=== PATIENT | male | born 1980 | race Caucasian/White ===

== ENCOUNTER 2018-10-07 03:18 | Observation (INO) ==
[2018-10-07] MEDS ORDERED: Azithromycin 250 MG TABLET PO ONE (06:01)
--- NOTE | 2018-10-07 06:04 | Emergency Department Note ---
Disposition Clinical Impression: Cough, Chest wall pain Disposition: Home, Self-Care Condition: Good Prescriptions: Azithromycin [Azithromycin 6-Tab Pack] 250 mg PO PER PKG DI #6 tab Referrals: Karsten Morrison MD [Primary Care Provider] - Forms: ED Satisfaction Letter Time of Disposition: 06:03 General Adult HPI - General Chief complaint: ED Upper Respiratory Infection Stated complaint: COUGH RIB PAINS Time Seen by Provider: 10/07/18 04:26 Source: patient, family Limitations: no limitations Nursing Notes Reviewed: Yes Vital Signs Reviewed: Yes - History of Present Illness HPI Narrative: 37-year-old male smoker presents with complaint of 40 history of cough, accompanied with right-sided rib pain. He describes rib pain starting a few hours prior to his arrival. He mentions he was preparing for a bicycle ride, when the pain had started. He mentions it is worse when he breathes in, and mild shortness of breath. Nursing does report that he had complained of sputum production as well. He denies any fever, night sweats, back pain, hemoptysis, extremity pain. Pain Scale: 4 - Related Data Previous Rx's Medication Instructions Recorded predniSONE [Prednisone] 60 mg PO DAILY #20 tablet 01/26/16 valACYclovir [Valtrex] 500 mg PO BID #10 tablet 01/26/16 Doxycycline 100 mg PO BID #14 capsule 09/04/16 Ibuprofen [Motrin] 600 mg PO Q8HR PRN #20 tab 09/04/16 Sulfamethoxazole/Trimeth DS 2 each PO BID #28 tablet 09/04/16 [Bactrim DS] traMADol [Ultram] 50 - 100 mg PO Q8HR PRN #20 tablet 09/04/16 Amoxicillin 875 mg PO BID #20 tablet 05/10/17 Azithromycin [Azithromycin 6-Tab 250 mg PO PER PKG DI #6 tab 10/07/18 Pack] Allergies Allergy/AdvReac Type Severity Reaction Status Date / Time No Known Allergies Allergy Verified 01/26/16 13:57 All systems ED: reviewed and negative except as stated. Review of Systems: As Per HPI Constitutional: Reports: as per HPI Eyes: Denies: vision change ENT ED: Denies: throat pain Cardiovascular: Reports: as per HPI Respiratory: Reports: as per HPI Gastrointestinal: Denies: abdominal pain, nausea, vomiting Genitourinary: Denies: dysuria Musculoskeletal: Denies: back pain Integumentary: Denies: rash Neurological: Denies: headache, weakness, numbness Psychiatric: Denies: depression Endocrine: Denies: fatigue Hematological/Lymphatic: Denies: easy bleeding Allergic/Immunologic: Denies: facial swelling Past Medical History - Past Medical History Medical history: Reports: no medical history Psychiatric history: Reports: no psych history - Social History Smoking Status: Current every day smoker Smokeless Tobacco Status: No Alcohol use: Reports: occasionally Drug use: Reports: marijuana, other Physical Exam - General Limitations: no limitations General appearance: alert, in no apparent distress - Head Head exam: atraumatic, normocephalic - Eye Eye exam: Present: EOMI. Absent: conjunctival injection - ENT ENT exam: normal oropharynx, mucous membranes moist - Neck Neck exam: Present: normal inspection, full ROM - Chest Chest inspection: Present: normal inspection. Absent: symmetric chest wall rise, tenderness - Respiratory Respiratory exam: Present: normal lung sounds bilaterally. Absent: respiratory distress (Decreased), wheezes, stridor, accessory muscle use - Cardiovascular Cardiovascular exam: Present: normal rhythm, tachycardia - Abdominal Exam Abdominal exam: Present: soft, Non-Tender - Extremities Exam Extremities exam: Present: normal inspection, full ROM, normal capillary refill - Back Exam Back exam: Present: full ROM - Neurological Exam Neurological exam: Present: alert - Psychiatric Psychiatric exam: Present: normal affect, normal mood - Skin Skin exam: Present: warm, dry, intact, normal color, diaphoresis. Absent: rash, cyanosis Course Course Narrative: 37-year-old male smoker presented with complaint of cough, and right-sided chest wall pain that he described as rib pain. One view chest x-ray was ordered at triage while patient was in the waiting room. I saw patient shortly after his arrival to exam room. He was initially tachycardic, O2 sats 95. Repeat examination, he did have mild improvement of his heart rate, O2 sats remained 93%. He does have a history of smoking denies any history of COPD. On my exam he was Initially diaphoretic. He also appeared somnolent, but arousable and answered questions appropriately. One view x-ray viewed by myself interpreted by radiologist shows right lower opacities, with radiologist impression is lower lung pinto and right-sided atelectasis. Upon discussion with patient, he states that he has had a four-day history of cough, but his pain had acutely worsened tonight, and is very painful when he breathes in. On my examination his lung sounds are slightly decreased, she will feel is related to his pleurisy with inhalation. - Reevaluation(s) Reevaluation #1: Pt tachycardia and acute onset of chest pain concerning for pneumonia and possibly PE. At this time it's the end of my shift, care of the patient will be continue by dayshift provider Jackeline Walls PA-C. I did discuss patient with Jackeline who also had face time with patient. She will continue her evaluation further workup. At this point, I feel that patient's symptoms are most consistent with pneumonia, and if further workup is consistent with this and no worsening or concerning signs for PE or any other acute conditions, patient will likely be able to be discharged to home with po antibiotics. However please see Jackeline's documentations for details and any changes this plan. Time: 06:25 Vital Signs Temperature 99 F 10/07/18 03:40 Pulse Rate 119 10/07/18 03:40 Respiratory Rate 20 10/07/18 03:40 Blood Pressure 109/42 10/07/18 03:40 O2 Sat by Pulse Oximetry 95 10/07/18 03:40 Temperature 99 F 10/07/18 03:40 Pulse Rate 89 10/07/18 05:48 Respiratory Rate 16 10/07/18 05:48 Blood Pressure 116/78 10/07/18 05:48 O2 Sat by Pulse Oximetry 93 10/07/18 05:48 Oxygen Delivery Oxygen Delivery Room Air Medical Decision Making - [facility] Narrative Medical decision making narrative: Chest X-Ray 10/07/18 03:59 IMPRESSION: 1. Low lung volumes with right basilar atelectasis. D/ / Jones Caldwell MD / Jones Caldwell MD Interpreting Provider: Jones Caldwell MD - Radiology Data Radiology results reviewed: Yes I reviewed the patient's radiology results.
[2018-10-07] MEDS ORDERED: Ipratropium/Albuterol Neb 3 ML IH ONE (06:12)
[2018-10-07] MEDS ORDERED: 0.9 % Sodium Chloride 1,000 ML IVC ONE ×2 (06:25→10:34)
--- NOTE | 2018-10-07 06:57 | Emergency Department Note ---
Disposition Clinical Impression: Multifocal lung consolidation, History of intravenous drug abuse, Severe sepsis, Hypochloremia, Hyponatremia Disposition: Admitted As Inpatient Condition: Serious General Adult HPI - General Chief complaint: ED Upper Respiratory Infection Stated complaint: COUGH RIB PAINS Time Seen by Provider: 10/07/18 04:26 Source: patient, family Mode of arrival: private vehicle Limitations: no limitations Nursing Notes Reviewed: Yes Vital Signs Reviewed: Yes - History of Present Illness HPI Narrative: Patient with history of IV drug abuse / polysubstance abuse - last use was heroin two days ago - presents from home with friend for evaluation of right- sided rib pain. His friend provides much of the history. He states that they were about to go for a bike ride at 9 PM and the patient suddenly dropped his right side and said he had severe pain. He states that the patient looked very pale and was sweaty. Patient describes it as a sharp stabbing pain without radiation. It is worse with deep inspiration, coughing, laughing and sometimes worse with certain movements. He has had a cough for about three or four days that is intermittent and occasionally productive of yellow phlegm. He denies hemoptysis, nausea, vomiting, fever, chills, dizziness, vertigo, syncope. He complains of feeling "rundown." Pt Subjective Complaint: cough x 3-4 days, right side chest pain since 9pm last night Onset (ago): [employer] Location: chest, right Radiation: non-radiation Pain Severity: moderate Pain Scale: 4 Quality: stabbing, sharp Consistency: intermittent Improves with: rest Worsens with: other (deep breath, cough, laugh) Associated symptoms: Reports: cough, malaise ("run down"). Denies: confusion, diaphoresis, fever/chills, headaches, loss of appetite, nausea/vomiting, rash, seizure, shortness of breath, syncope, weakness Treatments Prior to Arrival: none - Related Data Home Medications Medication Instructions Recorded Confirmed No Known Home Drugs 10/07/18 10/07/18 Allergies Allergy/AdvReac Type Severity Reaction Status Date / Time No Known Allergies Allergy Verified 10/07/18 10:42 All systems ED: reviewed and negative except as stated. Review of Systems: As Per HPI Constitutional: Reports: as per HPI Eyes: Denies: vision change ENT ED: Denies: throat pain Cardiovascular: Reports: as per HPI Respiratory: Reports: as per HPI Gastrointestinal: Denies: abdominal pain, nausea, vomiting Genitourinary: Denies: dysuria Musculoskeletal: Denies: back pain Integumentary: Denies: rash Neurological: Denies: headache, weakness, numbness Psychiatric: Denies: depression Endocrine: Denies: fatigue Hematological/Lymphatic: Denies: easy bleeding Allergic/Immunologic: Denies: facial swelling Past Medical History - Past Medical History Attestation: Yes The following information was validated with the patient. Source: patient, obtained from family Medical history: Reports: no medical history Surgical history: Reports: non-contributory Psychiatric history: Reports: no psych history - Social History Smoking Status: Current every day smoker Smokeless Tobacco Status: No Alcohol use: Reports: occasionally Drug use: Reports: marijuana, IV Drug Use, other Physical Exam - General Limitations: no limitations General appearance: in no apparent distress, lethargic - Head Head exam: atraumatic, normocephalic, normal inspection - Eye Eye exam: Present: normal appearance, PERRL. Absent: scleral icterus, conjunctival injection, periorbital swelling - ENT ENT exam: normal oropharynx, mucous membranes moist - Neck Neck exam: Present: normal inspection, full ROM, trachea midline. Absent: tenderness, meningismus, lymphadenopathy - Chest Chest inspection: Present: symmetric chest wall rise, other (Left clavicle deformity, chronic). Absent: tenderness, rash - Respiratory Respiratory exam: Absent: normal lung sounds bilaterally, respiratory distress, wheezes, stridor, accessory muscle use, prolonged expiratory phase - Expanded Respiratory Exam Location: rales: Left, Right, Lower - Cardiovascular Cardiovascular exam: Present: regular rate, normal rhythm, systolic murmur - Abdominal Exam Abdominal exam: Present: soft, Non-Tender. Absent: distention, guarding, rebound, rigidity, organomegaly, ascites, mass, pulsatile mass - Extremities Exam Extremities exam: Present: full ROM, normal capillary refill, other (Track ellison bilateral upper extremities). Absent: normal inspection (Status post amputation of distal phalanx, Right hand, second finger), tenderness - Back Exam Back exam: Present: normal inspection. Absent: tenderness - Neurological Exam Neurological exam: Present: oriented X3, CN II-XII intact - Expanded Neurological Exam Patient oriented to: Present: person, place, time Speech: Present: fluid speech Coma Scale Eye Opening: To Voice Coma Scale Motor Response: Obeys Commands Coma Scale Verbal Response: Oriented (Somnolent) Coma Scale Total: 14 - Psychiatric Psychiatric exam: Present: normal affect, normal mood - Skin Skin exam: Present: warm, dry, intact, normal color Course Course Narrative: Patient with history of IVDA was brought to the ER last night by a friend for evaluation of right anterior lateral lower lung pain, dyspnea. It was acute in onset around 9 PM. He denies trauma. He has had a cough for the past three or four days which is sometimes productive. No fever, chills, hemoptysis, nausea or vomiting. He does describe generalized malaise. Patient waited in the lobby for several hours, then was initially evaluated by the previous provider. Chest x-ray one view, shows a density in the right lower lung, new compared to pr evious. This was read by the radiologist as atelectasis. Labs, EKG DuoNeb and fluids have been ordered. Results are pending. Patient's d-dimer is elevated greater than 1000. CTA has been ordered. His BUN and creatinine are normal. GFR is normal. He has a white count of 18 with a prevalence of neutrophils. H&H are little low, platelet count is normal. Sodium is low at 131. Glucose is mildly elevated. LFTs show mildly elevated alkaline phosphatase. Case was discussed with Dr. Salazar. He has had [id number] time with patient and agrees with the assessment and plan. CT shows RML, RLL and Left upper opacities - Findings likley represent multifocal infectious / inflammatory process. Pneumonitis. No PE. A third blood culture ordered. ABX ordered. Hospitalist paged for admission. - Reevaluation(s) Reevaluation #1: Patient ambulated to the restroom without assistance or difficulty. He was offered a urinal or bedside toilet, but declines. Room air sat 92% and patient splinting. BP and pulse still normal. Time: 08:24 Reevaluation #2: Patient sleeping. Wakes more easily now. Stays awake to talk about results and plan. Agrees to stay for treatment. He also has now eaten. O2 sat 94% on room air. Time: 09:43 Reevaluation #3: BP now 94/55 - left arm. He is tachypneic but not tachycardic. Time: 10:34 Vital Signs Temperature 99 F 10/07/18 03:40 Pulse Rate 119 10/07/18 03:40 Respiratory Rate 20 10/07/18 03:40 Blood Pressure 109/42 10/07/18 03:40 O2 Sat by Pulse Oximetry 95 10/07/18 03:40 Temperature 99 F 10/07/18 03:40 Pulse Rate 92 10/07/18 07:27 Respiratory Rate 20 10/07/18 07:27 Blood Pressure 130/72 10/07/18 07:27 O2 Sat by Pulse Oximetry 98 10/07/18 07:32 Oxygen Delivery Oxygen Delivery Room Air Medical Decision Making - Medical Records Medical records reviewed: Yes I reviewed the patient's medical records. - Lab Data Lab results reviewed: Yes I reviewed the patient's lab results. Lab results narrative: Laboratory Last Values WBC 18.7 K/mcL (4.3-11.1) H 10/07/18 06:40 RBC 3.75 M/mcL (4.19-5.50) L 10/07/18 06:40 Hgb 10.4 g/dL (12.9-16.9) L 10/07/18 06:40 Hct 31.7 % (37.5-50.1) L 10/07/18 06:40 MCV 84.5 fL (83.0-100.0) 10/07/18 06:40 MCH 27.7 pg (28.0-33.3) L 10/07/18 06:40 MCHC 32.8 g/dL (31.6-35.5) 10/07/18 06:40 RDW 12.9 % (11.5-14.5) 10/07/18 06:40 Plt Count 397 K/mcL (140-400) 10/07/18 06:40 MPV 7.7 fL (9.4-12.4) L 10/07/18 06:40 Immature Gran % 0.5 % (0-4) 10/07/18 06:40 Seg Neutrophils % 82.9 % 10/07/18 06:40 Lymphocytes % 10.3 % 10/07/18 06:40 Monocytes % 5.9 % 10/07/18 06:40 Eosinophils % 0.2 % 10/07/18 06:40 Basophils % 0.2 % 10/07/18 06:40 Neutrophils # 15.5 K/mcL (1.6-8.9) H 10/07/18 06:40 Lymphocytes # 1.9 K/mcL (0.6-4.6) 10/07/18 06:40 Monocytes # 1.1 K/mcL (0.0-1.3) 10/07/18 06:40 Eosinophils # 0.0 K/mcL (0.0-0.6) 10/07/18 06:40 Basophils # 0.0 K/mcL (0.0-0.2) 10/07/18 06:40 PT 14.8 Seconds (9.4-12.1) H 10/07/18 06:40 INR 1.3 10/07/18 06:40 APTT 35.3 Seconds (26.0-36.0) 10/07/18 06:40 D-Dimer 1027 ng/mLFEU (0-500) H 10/07/18 06:40 Sodium 131 mEq/L (136-145) L 10/07/18 06:40 Potassium 4.6 mEq/L (3.5-5.1) 10/07/18 06:40 Chloride 95 mEq/L (98-107) L 10/07/18 06:40 Carbon Dioxide 27 mEq/L (23-29) 10/07/18 06:40 BUN 12 mg/dL (6-20) 10/07/18 06:40 Creatinine 0.67 mg/dL (0.70-1.30) L 10/07/18 06:40 Est GFR ( Amer) > 60 (> 60) 10/07/18 06:40 Est GFR (Non-Af Amer) > 60 (> 60) 10/07/18 06:40 BUN/Creatinine Ratio 18 (6-26) 10/07/18 06:40 Glucose 149 mg/dL (70-105) H 10/07/18 06:40 Calculated Osmolality 275 (280-300) L 10/07/18 06:40 Lactic Acid 0.4 mmol/L (0.5-2.2) L 10/07/18 06:40 Calcium 9.5 mg/dL (8.6-10.3) 10/07/18 06:40 Phosphorus 3.5 mg/dL (2.7-4.5) 10/07/18 06:40 Magnesium 2.1 mg/dL (1.6-2.6) 10/07/18 06:40 Total Bilirubin 0.5 mg/dL (0.3-1.0) 10/07/18 06:40 Direct Bilirubin 0.2 mg/dL (0.0-0.2) 10/07/18 06:40 Indirect Bilirubin 0.3 mg/dL (0.0-1.2) 10/07/18 06:40 AST 9 Units/L (13-39) L 10/07/18 06:40 ALT 11 Units/L (7-52) 10/07/18 06:40 Alkaline Phosphatase 155 Units/L (34-104) H 10/07/18 06:40 B-Natriuretic Peptide 34 pg/mL (Less than 100) 10/07/18 06:40 Serum Total Protein 7.3 g/dL (6.4-8.9) 10/07/18 06:40 Albumin 3.4 g/dL (3.5-5.7) L 10/07/18 06:40 Globulin 3.9 g/dL (2.4-3.5) H 10/07/18 06:40 Albumin/Globulin Ratio 0.9 (1.1-2.2) L 10/07/18 06:40 Result diagrams: 10/07/18 06:40 10/07/18 06:40 Lab Results 10/07/18 10/07/18 10/07/18 Range/Units 06:40 06:40 06:40 WBC 18.7 H (4.3-11.1) K/mcL RBC 3.75 L (4.19-5.50) M/mcL Hgb 10.4 L (12.9-16.9) g/dL Hct 31.7 L (37.5-50.1) % MCV 84.5 (83.0-100.0) fL MCH 27.7 L (28.0-33.3) pg MCHC 32.8 (31.6-35.5) g/dL RDW 12.9 (11.5-14.5) % Plt Count 397 (140-400) K/mcL MPV 7.7 L (9.4-12.4) fL Immature Gran % 0.5 (0-4) % Seg Neutrophils % 82.9 % Lymphocytes % 10.3 % Monocytes % 5.9 % Eosinophils % 0.2 % Basophils % 0.2 % Neutrophils # 15.5 H (1.6-8.9) K/mcL Lymphocytes # 1.9 (0.6-4.6) K/mcL Monocytes # 1.1 (0.0-1.3) K/mcL Eosinophils # 0.0 (0.0-0.6) K/mcL Basophils # 0.0 (0.0-0.2) K/mcL PT 14.8 H (9.4-12.1) Seconds INR 1.3 APTT 35.3 (26.0-36.0) Seconds D-Dimer 1027 H (0-500) ng/mLFEU Sodium (136-145) mEq/L Potassium (3.5-5.1) mEq/L Chloride (98-107) mEq/L Carbon Dioxide (23-29) mEq/L BUN (6-20) mg/dL Creatinine (0.70-1.30) mg/dL Est GFR ( Amer) (> 60) Est GFR (Non-Af Amer) (> 60) BUN/Creatinine Ratio (6-26) Glucose (70-105) mg/dL Calculated Osmolality (280-300) Lactic Acid (0.5-2.2) mmol/L Calcium (8.6-10.3) mg/dL Phosphorus (2.7-4.5) mg/dL Magnesium (1.6-2.6) mg/dL Total Bilirubin (0.3-1.0) mg/dL Direct Bilirubin (0.0-0.2) mg/dL Indirect Bilirubin (0.0-1.2) mg/dL AST (13-39) Units/L ALT (7-52) Units/L Alkaline Phosphatase (34-104) Units/L B-Natriuretic Peptide 34 (Less than 100) pg/mL Serum Total Protein (6.4-8.9) g/dL Albumin (3.5-5.7) g/dL Globulin (2.4-3.5) g/dL Albumin/Globulin Ratio (1.1-2.2) 10/07/18 10/07/18 Range/Units 06:40 06:40 WBC (4.3-11.1) K/mcL RBC (4.19-5.50) M/mcL Hgb (12.9-16.9) g/dL Hct (37.5-50.1) % MCV (83.0-100.0) fL MCH (28.0-33.3) pg MCHC (31.6-35.5) g/dL RDW (11.5-14.5) % Plt Count (140-400) K/mcL MPV (9.4-12.4) fL Immature Gran % (0-4) % Seg Neutrophils % % Lymphocytes % % Monocytes % % Eosinophils % % Basophils % % Neutrophils # (1.6-8.9) K/mcL Lymphocytes # (0.6-4.6) K/mcL Monocytes # (0.0-1.3) K/mcL Eosinophils # (0.0-0.6) K/mcL Basophils # (0.0-0.2) K/mcL PT (9.4-12.1) Seconds INR APTT (26.0-36.0) Seconds D-Dimer (0-500) ng/mLFEU Sodium 131 L (136-145) mEq/L Potassium 4.6 (3.5-5.1) mEq/L Chloride 95 L (98-107) mEq/L Carbon Dioxide 27 (23-29) mEq/L BUN 12 (6-20) mg/dL Creatinine 0.67 L (0.70-1.30) mg/dL Est GFR ( Amer) > 60 (> 60) Est GFR (Non-Af Amer) > 60 (> 60) BUN/Creatinine Ratio 18 (6-26) Glucose 149 H (70-105) mg/dL Calculated Osmolality 275 L (280-300) Lactic Acid 0.4 L (0.5-2.2) mmol/L Calcium 9.5 (8.6-10.3) mg/dL Phosphorus 3.5 (2.7-4.5) mg/dL Magnesium 2.1 (1.6-2.6) mg/dL Total Bilirubin 0.5 (0.3-1.0) mg/dL Direct Bilirubin 0.2 (0.0-0.2) mg/dL Indirect Bilirubin 0.3 (0.0-1.2) mg/dL AST 9 L (13-39) Units/L ALT 11 (7-52) Units/L Alkaline Phosphatase 155 H (34-104) Units/L B-Natriuretic Peptide (Less than 100) pg/mL Serum Total Protein 7.3 (6.4-8.9) g/dL Albumin 3.4 L (3.5-5.7) g/dL Globulin 3.9 H (2.4-3.5) g/dL Albumin/Globulin Ratio 0.9 L (1.1-2.2) - Radiology Data Radiology results reviewed: Yes I reviewed the patient's radiology results. Chest X-Ray 10/07/18 03:59 IMPRESSION: 1. Low lung volumes with right basilar atelectasis. D/ / Jones Caldwell MD / Jones Caldwell MD Interpreting Provider: Jones Caldwell MD Chest CTA 10/07/18 07:39 IMPRESSION: Negative study for pulmonary embolism. Areas of consolidation and ground-glass opacity along with some tree-in-bud type opacities to the right middle and lower lobes. Minimal patchy airspace opacities to the lingula of the left upper lobe. Findings are felt more likely to reflect multifocal infectious/inflammatory process. Follow-up to resolution recommended. Likely some superimposed mucous plugging within subsegmental bronchi to both the right middle and lower lobes with possibly some postobstructive pneumonitis to the right middle lobe. Attention can be paid on follow-up. Mediastinal and right hilar lymphadenopathy, likely reactive. Attention can be paid on follow-up. D/ / 10/07/2018 09:27:08 Will Leal MD / rico Interpreting Provider: Will Leal MD Attestation Statement - Attestation Attestation: Scotty Fonseca DO have provided [id number] time during the care of this patient. Detailed review the presentation, symptoms, medical history were discussed and reviewed with the advanced practice provider Jackeline Walls PA-C/DELIVERY AIDE. Medical intervention labs and imaging studies were reviewed in detail. See full documentation of physical exam and course of care in the advanced practice provider's note. I agree with the determined course of care, medical intervention and disposition put forth by the advanced practice provider. See below documentation for changes or alterations in documentation.
[2018-10-07 07:02] LABS: Basophils % 0.2 %; Eosinophils % 0.2 %; Hematocrit 31.7 % (37.5-50.1); Hemoglobin 10.4 g/dL (12.9-16.9); Immature Granulocytes % 0.5 % (0-4); Lymphocytes # 1.9 K/mcL (0.6-4.6); Lymphocytes % 10.3 %; Mean Corpuscular HGB Conc 32.8 g/dL (31.6-35.5); Mean Corpuscular Hemoglobin 27.7 pg (28.0-33.3); Mean Corpuscular Volume 84.5 fL (83.0-100.0); Mean Platelet Volume 7.7 fL (9.4-12.4); Monocytes # 1.1 K/mcL (0.0-1.3); Monocytes % 5.9 %; Neutrophils # 15.5 K/mcL (1.6-8.9); Platelet Count 397 K/mcL (140-400); Red Blood Count 3.75 M/mcL (4.19-5.50); Red Cell Distribution Width 12.9 % (11.5-14.5); Segmented Neutrophils % 82.9 %
[2018-10-07 07:12] LABS: INR 1.3; Prothrombin Time 14.8 Seconds (9.4-12.1)
[2018-10-07 07:15] LABS: Activated Partial Thrombo Time 35.3 Seconds (26.0-36.0)
[2018-10-07 07:22] LABS: Alanine Aminotransferase 11 Units/L (7-52); Albumin 3.4 g/dL (3.5-5.7); Albumin/Globulin Ratio 0.9 (1.1-2.2); Alkaline Phosphatase 155 Units/L (34-104); Aspartate Amino Transferase 9 Units/L (13-39); BUN/Creatinine Ratio 18 (6-26); Bilirubin,Direct 0.2 mg/dL (0.0-0.2); Bilirubin,Indirect 0.3 mg/dL (0.0-1.2); Bilirubin,Total 0.5 mg/dL (0.3-1.0); Blood Urea Nitrogen 12 mg/dL (6-20); Calcium 9.5 mg/dL (8.6-10.3); Carbon Dioxide 27 mEq/L (23-29); Chloride 95 mEq/L (98-107); Globulin 3.9 g/dL (2.4-3.5); Glucose 149 mg/dL (70-105); Magnesium 2.1 mg/dL (1.6-2.6); Osmolality,Calculated 275 (280-300); Phosphorous 3.5 mg/dL (2.7-4.5); Potassium 4.6 mEq/L (3.5-5.1); Sodium 131 mEq/L (136-145); Total Protein 7.3 g/dL (6.4-8.9); eGFR For Non-African Americans > 60 (> 60)
[2018-10-07] MEDS ORDERED: Isovue-370 500 ML INFUS..BTL IV ONE (07:39)
[2018-10-07 08:57] LABS: Troponin I < 0.03 ng/mL (< 0.04)
[2018-10-07] MEDS ORDERED: Cefepime HCl 2,000 MG in 0.9 % Sodium Chloride Mini Bag 100 ML IVPB ONE (09:22)
--- NOTE | 2018-10-07 09:24 | Emergency Department Note ---
Disposition Clinical Impression: Multifocal lung consolidation, History of intravenous drug abuse, Severe sepsis, Hypochloremia, Hyponatremia Disposition: Admitted As Inpatient Condition: Fair Time of Disposition: 11:29 General Adult HPI - General Chief complaint: ED Upper Respiratory Infection Stated complaint: COUGH RIB PAINS Time Seen by Provider: 10/07/18 04:26 Source: patient, family Mode of arrival: private vehicle Limitations: no limitations - History of Present Illness Location: chest, right Pain Scale: 4 Quality: stabbing, sharp Improves with: rest Worsens with: other (deep breath, cough, laugh) Associated symptoms: Reports: cough, malaise ("run down"). Denies: confusion, diaphoresis, fever/chills, headaches, loss of appetite, nausea/vomiting, rash, seizure, shortness of breath, syncope, weakness Treatments Prior to Arrival: none - Related Data Home Medications Medication Instructions Recorded Confirmed No Known Home Drugs 10/07/18 10/07/18 Allergies Allergy/AdvReac Type Severity Reaction Status Date / Time No Known Allergies Allergy Verified 10/07/18 10:42 Constitutional: Reports: as per HPI Eyes: Denies: vision change ENT ED: Denies: throat pain Cardiovascular: Reports: as per HPI Respiratory: Reports: as per HPI Gastrointestinal: Denies: abdominal pain, nausea, vomiting Genitourinary: Denies: dysuria Musculoskeletal: Denies: back pain Integumentary: Denies: rash Neurological: Denies: headache, weakness, numbness Psychiatric: Denies: depression Endocrine: Denies: fatigue Hematological/Lymphatic: Denies: easy bleeding Allergic/Immunologic: Denies: facial swelling Past Medical History - Past Medical History Medical history: Reports: no medical history Surgical history: Reports: non-contributory Psychiatric history: Reports: no psych history - Social History Smoking Status: Current every day smoker Smokeless Tobacco Status: No Alcohol use: Reports: occasionally Drug use: Reports: marijuana, IV Drug Use, other Physical Exam - General Limitations: no limitations General appearance: in no apparent distress, lethargic Course Vital Signs Temperature 99 F 10/07/18 03:40 Pulse Rate 119 10/07/18 03:40 Respiratory Rate 20 10/07/18 03:40 Blood Pressure 109/42 10/07/18 03:40 O2 Sat by Pulse Oximetry 95 10/07/18 03:40 Temperature 99 F 10/07/18 03:40 Pulse Rate 75 10/07/18 10:36 Respiratory Rate 20 10/07/18 11:15 Blood Pressure 93/61 10/07/18 11:15 O2 Sat by Pulse Oximetry 95 10/07/18 10:36 Oxygen Delivery Oxygen Delivery Room Air Medical Decision Making - Lab Data Result diagrams: 10/07/18 06:40 10/07/18 06:40 Lab Results 10/07/18 10/07/18 10/07/18 Range/Units 06:40 06:40 06:40 WBC 18.7 H (4.3-11.1) K/mcL RBC 3.75 L (4.19-5.50) M/mcL Hgb 10.4 L (12.9-16.9) g/dL Hct 31.7 L (37.5-50.1) % MCV 84.5 (83.0-100.0) fL MCH 27.7 L (28.0-33.3) pg MCHC 32.8 (31.6-35.5) g/dL RDW 12.9 (11.5-14.5) % Plt Count 397 (140-400) K/mcL MPV 7.7 L (9.4-12.4) fL Immature Gran % 0.5 (0-4) % Seg Neutrophils % 82.9 % Lymphocytes % 10.3 % Monocytes % 5.9 % Eosinophils % 0.2 % Basophils % 0.2 % Neutrophils # 15.5 H (1.6-8.9) K/mcL Lymphocytes # 1.9 (0.6-4.6) K/mcL Monocytes # 1.1 (0.0-1.3) K/mcL Eosinophils # 0.0 (0.0-0.6) K/mcL Basophils # 0.0 (0.0-0.2) K/mcL PT 14.8 H (9.4-12.1) Seconds INR 1.3 APTT 35.3 (26.0-36.0) Seconds D-Dimer 1027 H (0-500) ng/mLFEU Sodium (136-145) mEq/L Potassium (3.5-5.1) mEq/L Chloride (98-107) mEq/L Carbon Dioxide (23-29) mEq/L BUN (6-20) mg/dL Creatinine (0.70-1.30) mg/dL Est GFR ( Amer) (> 60) Est GFR (Non-Af Amer) (> 60) BUN/Creatinine Ratio (6-26) Glucose (70-105) mg/dL Calculated Osmolality (280-300) Lactic Acid (0.5-2.2) mmol/L Calcium (8.6-10.3) mg/dL Phosphorus (2.7-4.5) mg/dL Magnesium (1.6-2.6) mg/dL Total Bilirubin (0.3-1.0) mg/dL Direct Bilirubin (0.0-0.2) mg/dL Indirect Bilirubin (0.0-1.2) mg/dL AST (13-39) Units/L ALT (7-52) Units/L Alkaline Phosphatase (34-104) Units/L Troponin I (< 0.04) ng/mL B-Natriuretic Peptide 34 (Less than 100) pg/mL Serum Total Protein (6.4-8.9) g/dL Albumin (3.5-5.7) g/dL Globulin (2.4-3.5) g/dL Albumin/Globulin Ratio (1.1-2.2) 10/07/18 10/07/18 Range/Units 06:40 06:40 WBC (4.3-11.1) K/mcL RBC (4.19-5.50) M/mcL Hgb (12.9-16.9) g/dL Hct (37.5-50.1) % MCV (83.0-100.0) fL MCH (28.0-33.3) pg MCHC (31.6-35.5) g/dL RDW (11.5-14.5) % Plt Count (140-400) K/mcL MPV (9.4-12.4) fL Immature Gran % (0-4) % Seg Neutrophils % % Lymphocytes % % Monocytes % % Eosinophils % % Basophils % % Neutrophils # (1.6-8.9) K/mcL Lymphocytes # (0.6-4.6) K/mcL Monocytes # (0.0-1.3) K/mcL Eosinophils # (0.0-0.6) K/mcL Basophils # (0.0-0.2) K/mcL PT (9.4-12.1) Seconds INR APTT (26.0-36.0) Seconds D-Dimer (0-500) ng/mLFEU Sodium 131 L (136-145) mEq/L Potassium 4.6 (3.5-5.1) mEq/L Chloride 95 L (98-107) mEq/L Carbon Dioxide 27 (23-29) mEq/L BUN 12 (6-20) mg/dL Creatinine 0.67 L (0.70-1.30) mg/dL Est GFR ( Amer) > 60 (> 60) Est GFR (Non-Af Amer) > 60 (> 60) BUN/Creatinine Ratio 18 (6-26) Glucose 149 H (70-105) mg/dL Calculated Osmolality 275 L (280-300) Lactic Acid 0.4 L (0.5-2.2) mmol/L Calcium 9.5 (8.6-10.3) mg/dL Phosphorus 3.5 (2.7-4.5) mg/dL Magnesium 2.1 (1.6-2.6) mg/dL Total Bilirubin 0.5 (0.3-1.0) mg/dL Direct Bilirubin 0.2 (0.0-0.2) mg/dL Indirect Bilirubin 0.3 (0.0-1.2) mg/dL AST 9 L (13-39) Units/L ALT 11 (7-52) Units/L Alkaline Phosphatase 155 H (34-104) Units/L Troponin I < 0.03 (< 0.04) ng/mL B-Natriuretic Peptide (Less than 100) pg/mL Serum Total Protein 7.3 (6.4-8.9) g/dL Albumin 3.4 L (3.5-5.7) g/dL Globulin 3.9 H (2.4-3.5) g/dL Albumin/Globulin Ratio 0.9 L (1.1-2.2) Attestation Statement - Attestation Attestation: Marian, Scotty Salazar DO have provided [id number] time during the care of this patient. Detailed review the presentation, symptoms, medical history were discussed and reviewed with the advanced practice provider Jackeline Walls PA-C/STRAINER TENDER. Medical intervention labs and imaging studies were reviewed in detail. See full documentation of physical exam and course of care in the advanced practice provider's note. I agree with the determined course of care, medical intervention and disposition put forth by the advanced practice provider. See below documentation for changes or alterations in documentation. 37-year-old male presents to the emergency room with approximately 2 days worth of atraumatic right sided chest wall pain. He denies any fevers or chills. Denies any productive cough or sputum. Denies any chest pain shortness of breath headache or vision change. No recent nausea vomiting or diarrhea. Patient is a IV drug abuser. He does have an auscultated murmur. He has never had any issues with endocarditis or myocarditis in the past. A shunt physical exam is uncomfortable while lying in the bed. He sitting upright splinting the right side of his chest wall. There is no visible signs of trauma or injury to the chest wall. There is no crepitus or deformity. Lungs are clear on the left side but there is intermittent crackles or diminished aeration in the bases of the right lung. Abdomen is soft nontender nondistended with no guarding. Extremities appear to be normal with no signs of infection or cellulitis at this point. Vital signs are reviewed. Otherwise unremarkable. is concerning for possible pulmonary related etiology secondary to the chest wall pain. Initial workup was established with EKG chest x-ray and basic labs. Patient will have 3 sets of blood cultures ordered at this time secondary to an elevated d-dimer and concern for possible endocarditis or septic emboli. Antibiotic regimen will be started. Patient does have an elevated white blood cell count. The remainder of his labs appear to be stable at this point. Fluids will be given as needed. Patient otherwise is resting in the bed. He has not required oxygen supplementation yet at this point. He did have several episodes of desaturation on the monitor while here in the emergency department but clinically at this time appears to be holding his own. Patient will most likely require admission wants a full workup and treatment course have been established for will continue monitor her closely until the treatment course has been determined. No other acute issues noted at this point. EKG does not show any acute findings for myocardial ischemia or damage at this time. Patient has not had any chest pain that is all been right-sided chest wall pain just above the diaphragm. Symptomatically controlled to be completed and disposition to be determined. See detailed documentation of the physical exam, medical intervention, medical decision-making and disposition in the advanced practice provider's note. 1015 Patient has multi lobar pneumonia with infiltrates noted in the left upper lobe and then all the lobes of the right lung. Concern is still for septic emboli causing the pneumonia. Patient does have a white blood cell count as well as neutrophilia. He also has several other lab derangements including hyponatremia, anemia, hypochloremia. Patient will be admitted to the hospitalist at this time for continuation of care. Calls been placed at this point. T 1100 Patient was evaluated by the hospitalist here in the emergency room. Dr. Donis agreed with the admission process at this point. Patient will be admitted for continuation of care. No other acute concerns or issues noted at this time. Patient is otherwise stable but is concerning secondary to the multifactorial presentation as well as his substance abuse history. Patient will be admitted for observation at this time.
[2018-10-07] MEDS ORDERED: Ketorolac 15 MG/ML VIAL IVP ONE (09:34)
[2018-10-07] MEDS ORDERED: Naloxone 0.4 MG/ML INJ IVP PRN (11:05)
--- NOTE | 2018-10-07 11:15 | Internal Med History&Physical ---
Date of Encounter: 10/07/18 Time of Encounter: 11:09 Internal Medicine - H&P: HPI Chief complaint: Chest pain, cough Admitted From: Home Plans for Post Hospital Care: Home History of present illness: Mr. Hogan is a 37 year old male wit hx of IVDA-last use 2 days ago, tobacco abuse who presented to the ER with complains of R sided pleuritic chest pain He is seen and evaluated in the ER by himself he reports being in his usual state of health till about 3 days ago when he started coughing, cough was initially dry but became productive of yellowish sputum . He reports no fever or chills, night sweats, sick contacts, recent travels, recent incarceration, denies leg swelling. He developed acute onset R sided chest pain, said to be pleuritic in nature, worse with inspiration and sometimes movement. He denies any known relieving factors. he denies diaphoresis, nausea, vomiting, dizziness, palpitations he reports subjective fevers, no chills he denies changes in bowel or urinary habits he uses heroin IV daily, he also smokes tobacco daily, he reports no known medication allergies Work up shows leukocytosis with left shift, normocytic anemia, elevated D-dimer, hyperglycemia on Chem, hyponatremia, CTA showed multifocal PNA encompassing upper and middle lobes of both R and L lungs, as well as mucus plugging with reactive lymphadenopathy He will be admitted to observation for multifocal PNA. he is not septic at this time, but he is high risk for rapid decompensation due to multifocal nature of PNA and risk of progressing to full blown sepsis he agrees with plan of care Past Med Surg Social Fam HX - Past Medical History Medical history: no medical history Psychiatric history: no psych history - Past Surgical History Surgical History: non-contributory Additional surgical history: Finger Amputation, tailbone cyst removal. - Social History Smoking Status: Current every day smoker Smokeless Tobacco Status: No Alcohol use: occasionally Drug use: marijuana, IV Drug Use, other Internal Medicine - H&P: Meds No Known Home Drugs 10/07/18 [History] Allergy/AdvReac Type Severity Reaction Status Date / Time No Known Allergies Allergy Verified 10/07/18 10:42 All Systems PM: A 10-system review of systems was performed and is negative for pertinent findings except as documented above in the HPI. - Constitutional Constitutional: no chills, no fever(s), no night sweats - EENT Eyes: no change in vision, no discharge, no pain, no photophobia Ears: no ear discharge, no ear pain, no tinnitus Nose, mouth and throat: no dysphagia, no nasal discharge, no neck pain, no sore throat - Cardiovascular Cardiovascular ROS IM: as per HPI - Respiratory Respiratory: as per HPI - Gastrointestinal Gastrointestinal: no abdominal pain, no diarrhea, no hematemesis, no hematochezia, no melena, no nausea, no vomiting - Musculoskeletal Musculoskeletal ROS IM: no numbness, no tingling - Integumentary Integumentary IM: no rash, no unusual bruising - Neurological Neurological ROS: no confusion, no convulsions, no focal weakness, no numbness, no tingling, no tremor(s) - Hematologic/Lymphatic Hematologic/Lymphatic: no easy bruising - Constitutional Vitals: Temp Pulse Resp BP Pulse Ox 99 F 75 20 106/59 95 10/07/18 03:40 10/07/18 10:36 10/07/18 10:36 10/07/18 10:36 10/07/18 10:36 Exam: Vitals noted-Soft blood pressure, mild tachypnea Gen: Calm, not in distress, speaks full sentences HEENT: Moist oral mucosa, sclera anicteric, not pale Chest: Equal chest movement bilaterally REsp: CTAB, diminished breath sounds at the bases, no audible rhonchi Heart: S1, loud and split S2, no murmurs Abdomen: Scaphoid, soft, not tender, BS present in all quadrants Extremities: Multiple track ellison in upper and lower extremities, no splinter hemorrhages, no clubbing Neuro: AAOX3, no speech deficits, moves all extremities equally, no facial paralysis Psych: Affect is appropriate Internal Med - H&P Results - Labs CBC & Chem 7: 10/07/18 06:40 10/07/18 06:40 Labs: Short CBC 10/07/18 Range/Units 06:40 WBC 18.7 H (4.3-11.1) K/mcL Hgb 10.4 L (12.9-16.9) g/dL Hct 31.7 L (37.5-50.1) % Plt Count 397 (140-400) K/mcL Neutrophils # 15.5 H (1.6-8.9) K/mcL BMP 10/07/18 06:40 Sodium 131 L Potassium 4.6 Chloride 95 L Carbon Dioxide 27 BUN 12 Creatinine 0.67 L Glucose 149 H Calcium 9.5 Cardiac Enzymes 10/07/18 Range/Units 06:40 Troponin I < 0.03 (< 0.04) ng/mL Liver Function 10/07/18 Range/Units 06:40 Total Bilirubin 0.5 (0.3-1.0) mg/dL Direct Bilirubin 0.2 (0.0-0.2) mg/dL AST 9 L (13-39) Units/L ALT 11 (7-52) Units/L Alkaline Phosphatase 155 H (34-104) Units/L Albumin 3.4 L (3.5-5.7) g/dL - Impressions ITS Impressions Chest X-Ray 10/07/18 03:59 IMPRESSION: 1. Low lung volumes with right basilar atelectasis. D/ / Jones Caldwell MD / Jones Caldwell MD Interpreting Provider: Jones Caldwell MD Chest CTA 10/07/18 07:39 IMPRESSION: Negative study for pulmonary embolism. Areas of consolidation and ground-glass opacity along with some tree-in-bud type opacities to the right middle and lower lobes. Minimal patchy airspace opacities to the lingula of the left upper lobe. Findings are felt more likely to reflect multifocal infectious/inflammatory process. Follow-up to resolution recommended. Likely some superimposed mucous plugging within subsegmental bronchi to both the right middle and lower lobes with possibly some postobstructive pneumonitis to the right middle lobe. Attention can be paid on follow-up. Mediastinal and right hilar lymphadenopathy, likely reactive. Attention can be paid on follow-up. D/ / 10/07/2018 09:27:08 Will Leal MD / rico Interpreting Provider: Will Leal MD - Assessment and plan (1) Multifocal pneumonia Current Visit: Yes Status: Acute Assessment and plan: Continue vanco and Cefepime Not hypoxic at this time, continue to monitor closely Follow blood, sputum cultures Follow strep Ag and legionella Ag Patient with known IVDA, no current suspicion for infective endocarditis Consider IE work up if blood cultures are positive Continue to monitor (2) History of intravenous drug abuse Current Visit: Yes Status: Chronic Assessment and plan: MOnitor for withdrawal Counselled, patient wishes to self-quit Consider SW eval prior to discharge (3) Tobacco abuse Current Visit: Yes Status: Chronic Assessment and plan: encouraged cessation NRT prn (4) Hyperglycemia Current Visit: Yes Status: Acute Assessment and plan: Likely reactive due to infection Check A1C with a.m labs (5) Anemia Current Visit: Yes Status: Acute Assessment and plan: Normocytic anemia Hb of 10 in a young male Likely due to poor nutritional status Check iron profile, as well as anemia work up Currently hemodynamically stable with no suspicion of bleeding Qualifiers: Anemia type: unspecified type Qualified Code(s): D64.9 - Anemia, unspecified (6) Hyponatremia Current Visit: Yes Status: Acute Assessment and plan: likely hypovolemic Continue to monitor - Time Spent With Patient Total time spent is greater than 50% in coordination of care (as documented) at patient's floor/unit and/or counseling patient:
[2018-10-07] MEDS: 0.9 % Sodium Chloride 1,000 ML IVC SCH (14:06)
[2018-10-07] MEDS: Ibuprofen 400 MG TABLET PO PRN (17:19)
[2018-10-07] MEDS: Cefepime HCl 2,000 MG in Water for inj. (sterile) 20 ML 20 ML IVP SCH (18:24)
[2018-10-07] MEDS ORDERED: GuaiFENesin Liq 200 MG/10 ML UDC PO PRN ×2 (19:12→19:52)
[2018-10-07] MEDS: GuaiFENesin Liq 200 MG/10 ML UDC PO PRN (20:41)
[2018-10-08] MEDS: 0.9 % Sodium Chloride 1,000 ML IVC SCH (04:51)
[2018-10-08] MEDS: Cefepime HCl 2,000 MG in Water for inj. (sterile) 20 ML 20 ML IVP SCH ×3 (04:51→17:09)
[2018-10-08 05:15] LABS: Basophils % 0.2 %; Eosinophils # 0.2 K/mcL (0.0-0.6); Eosinophils % 1.2 %; Hematocrit 33.2 % (37.5-50.1); Hemoglobin 10.5 g/dL (12.9-16.9); Immature Granulocytes % 0.3 % (0-4); Lymphocytes # 1.5 K/mcL (0.6-4.6); Lymphocytes % 10.2 %; Mean Corpuscular HGB Conc 31.6 g/dL (31.6-35.5); Mean Corpuscular Hemoglobin 27.6 pg (28.0-33.3); Mean Corpuscular Volume 87.1 fL (83.0-100.0); Mean Platelet Volume 7.7 fL (9.4-12.4); Monocytes # 0.8 K/mcL (0.0-1.3); Monocytes % 5.7 %; Neutrophils # 12.1 K/mcL (1.6-8.9); Platelet Count 389 K/mcL (140-400); Red Blood Count 3.81 M/mcL (4.19-5.50); Red Cell Distribution Width 13.1 % (11.5-14.5); Segmented Neutrophils % 82.4 %
[2018-10-08 05:40] LABS: BUN/Creatinine Ratio 14 (6-26); Blood Urea Nitrogen 7 mg/dL (6-20); Calcium 8.9 mg/dL (8.6-10.3); Carbon Dioxide 26 mEq/L (23-29); Chloride 100 mEq/L (98-107); Glucose 92 mg/dL (70-105); Iron < 10 mcg/dL (65-175); Osmolality,Calculated 276 (280-300); Potassium 4.8 mEq/L (3.5-5.1); Sodium 134 mEq/L (136-145); Transferrin 154 mg/dL (203-362); eGFR For Non-African Americans > 60 (> 60)
[2018-10-08 05:58] LABS: Folate 15.7 ng/mL (3.0-16.0)
[2018-10-08 08:06] LABS: Estimated Average Glucose 123 mg/dl; Hemoglobin A1C 5.9 %
--- NOTE | 2018-10-08 11:45 | Internal Med Progress Note ---
Hospitalist Progress Note - Encounter Date of Encounter: 10/08/18 Time of Encounter: 11:43 - Subjective Interval History: Patient reported increased amount of mucus production, his chest pain has improved. Overnight, he has no fever, chills, or night sweats. - Exam Vitals: Temp Pulse Resp BP Pulse Ox 98.9 F 87 15 123/69 96 10/08/18 10:47 10/08/18 10:47 10/08/18 06:59 10/08/18 10:47 10/08/18 10:47 Exam: PHYSICAL EXAMINATION: GENERAL APPEARANCE: The patient is alert, oriented and in no acute distress. HEENT: Head is normocephalic. The sinuses are nontender. Pupils are equal and reactive. The nares are patent. Oropharynx clear without lesions. NECK: Supple without lymphadenopathy. HEART: Regular rate and rhythm. LUNGS: No crackles or wheezes are heard. ABDOMEN: Soft, nontender, nondistended with good bowel sounds heard. Inguinal area is normal. EXTREMITIES: Without cyanosis, clubbing or edema. NEUROLOGICAL: Gross nonfocal. SKIN: Warm and dry without any rash. - Assessment and Plan (1) Multifocal pneumonia Current Visit: Yes Status: Acute Assessment and Plan: Continue vanco and Cefepime Not hypoxic at this time, continue to monitor closely Follow blood, sputum cultures Follow strep Ag and legionella Ag Patient with known IVDA, no current suspicion for infective endocarditis Consider IE work up if blood cultures are positive Continue to monitor (2) History of intravenous drug abuse Current Visit: Yes Status: Chronic Assessment and Plan: Monitor for withdrawal Counselled, patient wishes to self-quit Consider SW eval prior to discharge (3) Hyponatremia Current Visit: Yes Status: Acute Assessment and Plan: likely hypovolemic, Improving, Na 131-->134 this am, Continue to monitor (4) Tobacco abuse Current Visit: Yes Status: Chronic Assessment and Plan: encouraged cessation NRT prn (5) Hyperglycemia Current Visit: Yes Status: Acute Assessment and Plan: A1c 5.7 this morning. (6) Anemia Current Visit: Yes Status: Acute Assessment and Plan: normal B12 and folate, low iron level, will start iron supplement. DVT Prophylaxis: SCDs - Time Spent with Patient Total time spent is greater than 50% in coordination of care (as documented) at patient's floor/unit and/or counseling patient: Greater than 35 minutes Plan of Care Discussed with: patient Internal Medicine: Result - Labs CBC & Chem 7: 10/08/18 04:39 10/08/18 04:39 Labs: Short CBC 10/08/18 Range/Units 04:39 WBC 14.7 H (4.3-11.1) K/mcL Hgb 10.5 L (12.9-16.9) g/dL Hct 33.2 L (37.5-50.1) % Plt Count 389 (140-400) K/mcL Neutrophils # 12.1 H (1.6-8.9) K/mcL BMP 10/08/18 04:39 Sodium 134 L Potassium 4.8 Chloride 100 Carbon Dioxide 26 BUN 7 Creatinine 0.50 L Glucose 92 Calcium 8.9 - ABG Interpretation ABG results: PT/INR, D-dimer PT 14.8 Seconds (9.4-12.1) H 10/07/18 06:40 D-Dimer 1027 ng/mLFEU (0-500) H 10/07/18 06:40 Consult Discharge Plan - Plan Referrals: Karsten Morrison MD [Primary Care Provider] - (6) Anemia Qualifiers: Anemia type: unspecified type Qualified Code(s): D64.9 - Anemia, unspecified
[2018-10-08] MEDS: GuaiFENesin Liq 200 MG/10 ML UDC PO PRN (20:55)
[2018-10-08] MEDS: Ibuprofen 400 MG TABLET PO PRN (20:55)
[2018-10-09] MEDS: Cefepime HCl 2,000 MG in Water for inj. (sterile) 20 ML 20 ML IVP SCH ×3 (02:03→18:20)
[2018-10-09 05:43] LABS: Basophils % 0.2 %; Eosinophils # 0.1 K/mcL (0.0-0.6); Eosinophils % 1.6 %; Hematocrit 32.1 % (37.5-50.1); Hemoglobin 10.3 g/dL (12.9-16.9); Immature Granulocytes % 0.6 % (0-4); Lymphocytes # 1.3 K/mcL (0.6-4.6); Lymphocytes % 14.8 %; Mean Corpuscular HGB Conc 32.1 g/dL (31.6-35.5); Mean Corpuscular Hemoglobin 27.9 pg (28.0-33.3); Mean Platelet Volume 7.6 fL (9.4-12.4); Monocytes # 0.7 K/mcL (0.0-1.3); Monocytes % 7.5 %; Neutrophils # 6.6 K/mcL (1.6-8.9); Platelet Count 339 K/mcL (140-400); Red Blood Count 3.69 M/mcL (4.19-5.50); Segmented Neutrophils % 75.3 %
[2018-10-09 06:04] LABS: BUN/Creatinine Ratio 13 (6-26); Blood Urea Nitrogen 6 mg/dL (6-20); Calcium 8.8 mg/dL (8.6-10.3); Carbon Dioxide 26 mEq/L (23-29); Chloride 102 mEq/L (98-107); Glucose 110 mg/dL (70-105); Osmolality,Calculated 278 (280-300); Potassium 3.7 mEq/L (3.5-5.1); Sodium 135 mEq/L (136-145); eGFR For Non-African Americans > 60 (> 60)
--- NOTE | 2018-10-09 08:08 | Electrocardiograph Report ---
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
--- NOTE | 2018-10-09 10:42 | Internal Med Progress Note ---
Hospitalist Progress Note - Encounter Date of Encounter: 10/09/18 Time of Encounter: 10:38 - Subjective Interval History: Patient reported increased amount of mucus production, his chest pain has improved. Overnight, he has no fever, chills, or night sweats. - Exam Vitals: Temp Pulse Resp BP Pulse Ox 98.5 F 91 15 127/76 95 10/09/18 10:16 10/09/18 10:16 10/09/18 10:16 10/09/18 10:16 10/09/18 10:16 Exam: PHYSICAL EXAMINATION: GENERAL APPEARANCE: The patient is alert, oriented and in no acute distress. HEENT: Head is normocephalic. The sinuses are nontender. Pupils are equal and reactive. The nares are patent. Oropharynx clear without lesions. NECK: Supple without lymphadenopathy. HEART: Regular rate and rhythm. LUNGS: No crackles or wheezes are heard. ABDOMEN: Soft, nontender, nondistended with good bowel sounds heard. Inguinal area is normal. EXTREMITIES: Without cyanosis, clubbing or edema. NEUROLOGICAL: Gross nonfocal. SKIN: Warm and dry without any rash. - Assessment and Plan (1) Multifocal pneumonia Current Visit: Yes Status: Acute Assessment and Plan: Continue vanco and Cefepime Not hypoxic at this time, continue to monitor closely Follow blood, Follow strep Ag and legionella Ag Patient with known IVDA, no current suspicion for infective endocarditis Consider IE work up if blood cultures are positive Continue to monitor (2) History of intravenous drug abuse Current Visit: Yes Status: Chronic Assessment and Plan: Monitor for withdrawal Counselled, patient wishes to self-quit Consider SW eval prior to discharge (3) Hyponatremia Current Visit: Yes Status: Acute Assessment and Plan: likely hypovolemic, Improving, Na 131-->134 this am, Continue to monitor (4) Tobacco abuse Current Visit: Yes Status: Chronic Assessment and Plan: encouraged cessation NRT prn (5) Hyperglycemia Current Visit: Yes Status: Acute (6) Anemia Current Visit: Yes Status: Acute Assessment and Plan: normal B12 and folate, low iron level, cont iron supplement. - Time Spent with Patient Total time spent is greater than 50% in coordination of care (as documented) at patient's floor/unit and/or counseling patient: Greater than 35 minutes Plan of Care Discussed with: patient Internal Medicine: Result - Labs CBC & Chem 7: 10/09/18 05:18 10/09/18 05:18 Labs: Short CBC 10/09/18 Range/Units 05:18 WBC 8.8 (4.3-11.1) K/mcL Hgb 10.3 L (12.9-16.9) g/dL Hct 32.1 L (37.5-50.1) % Plt Count 339 (140-400) K/mcL Neutrophils # 6.6 (1.6-8.9) K/mcL BMP 10/09/18 05:18 Sodium 135 L Potassium 3.7 Chloride 102 Carbon Dioxide 26 BUN 6 Creatinine 0.46 L Glucose 110 H Calcium 8.8 - ABG Interpretation ABG results: PT/INR, D-dimer PT 14.8 Seconds (9.4-12.1) H 10/07/18 06:40 D-Dimer 1027 ng/mLFEU (0-500) H 10/07/18 06:40 Consult Discharge Plan - Plan Referrals: Karsten Morrison MD [Primary Care Provider] - (6) Anemia Qualifiers: Anemia type: unspecified type Qualified Code(s): D64.9 - Anemia, unspecified
[2018-10-09] MEDS: Ibuprofen 400 MG TABLET PO PRN (20:37)
[2018-10-09] MEDS ORDERED: Ketorolac 15 MG/ML VIAL IVP ONE (22:05)
[2018-10-09] MEDS: GuaiFENesin Liq 200 MG/10 ML UDC PO PRN (22:11)
[2018-10-10] MEDS: Cefepime HCl 2,000 MG in Water for inj. (sterile) 20 ML 20 ML IVP SCH (03:03)
--- NOTE | 2018-10-10 04:35 | Event Note ---
Date of Encounter: 10/10/18 Time of Encounter: 04:32 Patient admitted to nurse that he sniffed heroin yesterday in hospital. States he is going through withdrawals. Symptom primarily feeling like insects are crawling on his skin. He is requesting meds to stop this symptom. On exam patient appears stable. He is no diaphoretic, CV is RRR, CTAB with normal respiratory rate. Patient states he does not have any more drugs, and if he did he would've already taken them. Advised patient to stop taking recreational drugs in hospital. Night security says they do not have enough personal currently to search patients room, but will have enough manpower during day.
[2018-10-10 07:13] LABS: Basophils % 0.2 %; Eosinophils # 0.1 K/mcL (0.0-0.6); Eosinophils % 0.7 %; Hematocrit 36.3 % (37.5-50.1); Hemoglobin 11.7 g/dL (12.9-16.9); Immature Granulocytes % 0.9 % (0-4); Lymphocytes # 1.2 K/mcL (0.6-4.6); Lymphocytes % 14.5 %; Mean Corpuscular HGB Conc 32.2 g/dL (31.6-35.5); Mean Corpuscular Hemoglobin 27.7 pg (28.0-33.3); Mean Platelet Volume 7.6 fL (9.4-12.4); Monocytes # 0.3 K/mcL (0.0-1.3); Neutrophils # 6.8 K/mcL (1.6-8.9); Platelet Count 454 K/mcL (140-400); Red Blood Count 4.22 M/mcL (4.19-5.50); Red Cell Distribution Width 12.8 % (11.5-14.5); Segmented Neutrophils % 79.7 %
[2018-10-10 07:26] VITALS: BP 133/83
[2018-10-10 07:32] LABS: BUN/Creatinine Ratio 9 (6-26); Blood Urea Nitrogen 5 mg/dL (6-20); Calcium 9.6 mg/dL (8.6-10.3); Carbon Dioxide 30 mEq/L (23-29); Chloride 105 mEq/L (98-107); Glucose 103 mg/dL (70-105); Osmolality,Calculated 292 (280-300); Potassium 4.1 mEq/L (3.5-5.1); Sodium 142 mEq/L (136-145); eGFR For Non-African Americans > 60 (> 60)
--- NOTE | 2018-10-10 09:04 | Discharge Summary ---
- NOTES TO OUTPATIENT PROVIDER Notes to Outpatient Provider: f/u with PCP within 2 weeks. Orders not resulted at time of discharge: Pending orders 10/07/18 07:24 Culture,Blood [BC] Stat 10/11/18 23:00 Vancomycin,Trough Timed Date of Encounter: 10/10/18 Time of Encounter: 09:01 - Discharge Diagnosis (1) Multifocal pneumonia Priority: Primary Status: Acute (2) History of intravenous drug abuse Priority: Secondary Status: Chronic (3) Hyponatremia Priority: Primary Status: Resolved (4) Tobacco abuse Priority: Secondary Status: Chronic (5) Hyperglycemia Priority: Primary Status: Acute (6) Anemia Priority: Secondary Status: Chronic Qualifiers: Anemia type: unspecified type Qualified Code(s): D64.9 - Anemia, unspecified Hospital course: Mr. Hogan is a 37 year old male wit hx of IVDA-last use 2 days ago, tobacco abuse who presented to the ER with complains of R sided pleuritic chest pain he reports being in his usual state of health till about 3 days ago when he started coughing, cough was initially dry but became productive of yellowish sputum . He reports no fever or chills, night sweats, sick contacts, recent travels, recent incarceration, denies leg swelling. He developed acute onset R sided chest pain, said to be pleuritic in nature, worse with inspiration and sometimes movement. He denies any known relieving factors. he denies diaphoresis, nausea, vomiting, dizziness, palpitations.Work up shows leukocytosis with left shift, normocytic anemia, elevated D-dimer, hyperglycemia on Chem, hyponatremia, CTA showed multifocal PNA encompassing upper and middle lobes of both R and L lungs, as well as mucus plugging with reactive lymphadenopathy He received IV Cefepime and Vancomycin for 3 days, his symptoms have significantly improved. Leukocytosis has resolved. Iv abx has changed to oral Augmentin, he will be discharged home today. f/u with PCP within 2 weeks. Discharge discussed with: patient Time spent discussing smoking cessation with patient: more than 10 minutes - Time Spent with Patient Total time spent providing and/or coordinating discharge services: Greater than 30 minutes - Discharge Medications Prescriptions: Amoxicillin/Clavulanate [Augmentin] 875 mg PO BIDWM #14 tablet Ferrous Sulfate 325 mg PO DAILY@0800 #30 tablet Home Medications: Amoxicillin/Clavulanate [Augmentin] 875 mg PO BIDWM #14 tablet 10/10/18 [Rx] Ferrous Sulfate 325 mg PO DAILY@0800 #30 tablet 10/10/18 [Rx] Allergies/Adverse Reactions: Allergy/AdvReac Type Severity Reaction Status Date / Time No Known Allergies Allergy Verified 10/07/18 10:42 Date of admission: 10/07/18 10:42 Primary care physician: Karsten Morrison MD Anticipated date of discharge: 10/10/18 - Constitutional Vitals: Temp Pulse Resp BP Pulse Ox 98.5 F 83 16 133/83 99 10/10/18 07:22 10/10/18 07:22 10/10/18 07:22 10/10/18 07:22 10/10/18 07:22 General appearance: Present: cooperative, A&O X 3, answers questions appropriately Exam: PHYSICAL EXAMINATION: GENERAL APPEARANCE: The patient is alert, oriented and in no acute distress. HEENT: Head is normocephalic. The sinuses are nontender. Pupils are equal and reactive. The nares are patent. Oropharynx clear without lesions. NECK: Supple without lymphadenopathy. HEART: Regular rate and rhythm. LUNGS: No crackles or wheezes are heard. ABDOMEN: Soft, nontender, nondistended with good bowel sounds heard. Inguinal area is normal. EXTREMITIES: Without cyanosis, clubbing or edema. NEUROLOGICAL: Gross nonfocal. SKIN: Warm and dry without any rash. - Patient Status Disposition: Home, Self-Care Condition: Fair Functional capacity at discharge: independent ambulation Overall status at discharge: patient is progressing back to baseline - Discharge Instructions Follow Up With: Karsten Morrison MD [Primary Care Provider] - - Diet and Activity Activity: increase activity as tolerated Diet: advance to your usual diet
== END 2018-10-10 10:47 | disposition home or self-care (01) ==
LOC: EMEROOARM 03:18 → INTOOBSV 10:42 → 3ANU 10:42
PROVIDERS: ADMIT Internal Medicine; ATTEND Internal Medicine